=== PATIENT | female | born 1955 | race Caucasian/White ===

== ENCOUNTER → 2025-03-06 | Outpatient (CLI) | payer MEDICARE | END | disposition home or self-care (01) | LOC: US 15:00 | PROVIDERS: ATTEND Podiatrist | DX: I82.491 Acute embolism and thrombosis of other specified deep vein of right lower extremity (principal); R59.0 Localized enlarged lymph nodes ==

== ENCOUNTER 2025-05-14 20:05 | Emergency (ER) | payer MEDICARE ==
[~2025-05-14] VITALS: Ht 162.5 cm; Wt 99.8 kg
[2025-05-14] MEDS ORDERED: BRILINTA60 MG PO (20:26)
[2025-05-14] MEDS ORDERED: ASPIRIN CHILDRE81 MG PO (20:27)
[2025-05-14] MEDS ORDERED: ceFAZolin sodium/sodium chlor 10 ML IV ONE (20:30)
[2025-05-14] MEDS ORDERED: HYDROmorphONE Hydrochloride 0.5 MG/0.5 ML SYRINGE IV ONE ×2 (21:50→22:25)
[2025-05-14] MEDS ORDERED: Ondansetron Hydrochloride 4 MG/2 ML VIAL IV ONE (21:50)
== END 2025-05-14 23:33 | disposition short-term general hospital (02) ==
LOC: ED 20:05
DX: S01.81XA Laceration without foreign body of other part of head, initial encounter (principal); Z79.899 Other long term (current) drug therapy; Z79.82 Long term (current) use of aspirin; W01.198A Fall on same level from slipping, tripping and stumbling with subsequent striking against other object, initial encounter; Y93.89 Activity, other specified; Y92.89 Other specified places as the place of occurrence of the external cause; Y99.8 Other external cause status